=== PATIENT | male | born 1960 | race Caucasian/White ===

== ENCOUNTER 2019-04-12 10:09 | Emergency (ER) | payer OTHER ==
[2019-04-12 10:20] VITALS: BP 115/79; PULSE 57; TEMP 97.4; BMI 26.4
--- NOTE | 2019-04-12 10:57 | PDOC ---
History of Present Illness - General Chief Complaint: Constipation Stated Complaint: CONSTIPATION Time Seen by Provider: 04/12/19 10:15 History Source: Patient Exam Limitations: No Limitations - History of Present Illness Travel History: No Initial Comments: 04/12/19 10:58 59-year-old gentleman With no past medical history presenting with complaint of constipation. Patient states that he has been having Very small and hard stools last several days. Patient did have one episode of Crampy abdominal pain that resolved in the left lower quadrant yesterday. The patient denies any fever, chills, nausea, vomiting, current abdominal pain Blood per rectum, New medications. Patient states he has a varied diet, with no recent diet changes, His diet includes fiber. Patient has a remote history of appendectomy. Patient had some MiraLAX Yesterday without significant improvement. ROS: Constitutional - no reported Fever, Chills, HEENT: no reported vision changes, sore throat Respiratory: no reported cough, sob, hemoptysis Cardiac: no reported chest pain, palpitations, light headedness, leg swelling Abd/GI: +constipation no reported abd pain, nausea, vomiting, blood per rectum, melena, diarrhea : no reported dysuria, frequency, discharge Musculskelatal - no reported back pain, joint swelling skin - no reported bruising, erythema, rash neurological: no reported headache, numbness, focal weakness, tingling, ataxia, hematologic: no reported easy bruising, easy bleeding Physical Exam: GENERAL: The patient is awake, alert, and fully oriented, Nontoxic - in no acute distress. HEAD: Normocephalic, atraumatic. EYES: extraocular movements intact, sclera anicteric, conjunctiva clear. ENT: Normal voice, Moist mucous membranes. NECK: Normal range of motion, supple ABDOMEN: Soft, nontender, No guarding, no rebound. No CVA tenderness EXTREMITIES: Normal range of motion, no edema. NEUROLOGICAL: No facial assymetry, Normal speech, PSYCH: Normal mood, normal affect. SKIN: Warm, Dry, normal turgor, 59-year-old no past medical history presenting with constipation Without any concerning signs or symptoms. I suspect the patient's constipation may be secondary to activity changes as he is exercising less. Recommend supportive management with me Benefiber and MiraLAX. We will have the patient follow-up with PMD and possibly GI if symptoms do not return to normal. Discuss return precautions including signs of obstruction with the patient. Past History - Past Medical History Allergies/Adverse Reactions: Allergies Allergy/AdvReac Type Severity Reaction Status Date / Time Penicillins Allergy Unknown Rash Verified 04/12/19 10:12 Home Medications: Ambulatory Orders NK [No Known Home Medication] 04/12/19 COPD: No - Psycho Social/Smoking Cessation Hx Smoking History: Never smoked Have you smoked in the past 12 months: No Information on smoking cessation initiated: No Hx Alcohol Use: No Drug/Substance Use Hx: No *Physical Exam - Vital Signs Last Vital Signs Temp Pulse Resp BP Pulse Ox 97.4 F L 57 L 20 115/79 99 04/12/19 10:10 04/12/19 10:10 04/12/19 10:10 04/12/19 10:10 04/12/19 10:10 Discharge - Discharge Information Problems reviewed: Yes Clinical Impression/Diagnosis: Constipation Qualifiers: Constipation type: other constipation type Qualified Code(s): K59.09 - Other constipation Condition: Stable Disposition: HOME - Admission No - Follow up/Referral Referrals: Glenys Steiner MD [Non Staff, Medical] - - Patient Discharge Instructions Patient Printed Discharge Instructions: DI for Constipation Additional Instructions: Return to the emergency department immediately with ANY new, persistent or worsening symptoms including worsening abdominal pain, fevers, chills, inability to tolerate oral intake or any other concerns. Please increase your water intake, increasing physical activity and increase your fiber intake Use the miralax and benefibr as directed You MUST call and follow up with your doctor tomorrow for further evaluation of your symptoms. Your emergency department visit is not complete without a followup with your doctor for reevaluation. Results were discussed with you. Please make sure your doctor reviews the results of your emergency evaluation. Print Language: ANDORRAN - Post Discharge Activity
== END 2019-04-12 11:19 | disposition home or self-care (01) ==
LOC: FER 10:09
DX: K59.09 Other constipation (principal)
CPT/HCPCS: 99281-25